=== PATIENT | male | born 1955 | race Caucasian/White ===

== ENCOUNTER → 2017-11-03 | Outpatient (CLI) | payer OTHER ==
[2017-11-03 14:23] LABS: HEMATOCRIT 38.6 % (42.0-52.0); HEMOGLOBIN 13.4 g/dl (13.5-17.5); MEAN CORPUSCULAR HEMOGLOBIN 30.3 pg (27.0-33.0); MEAN CORPUSCULAR HGB CONC 34.7 g/dl (32.0-36.5); MEAN CORPUSCULAR VOLUME 87.3 fl (80.0-96.0); PLATELET COUNT, AUTOMATED 259 10^3/uL (150-450); RED BLOOD COUNT 4.42 10^6/uL (4.30-6.10); RED CELL DISTRIBUTION WIDTH 12.1 % (11.5-14.5); WHITE BLOOD COUNT 6.6 10^3/uL (4.0-10.0)
[2017-11-03 14:42] LABS: INR 0.92; PROTHROMBIN TIME 12.5 SECONDS (12.1-14.4)
[2017-11-03 14:43] LABS: ALBUMIN 4.4 GM/DL (3.2-5.2); ALBUMIN/GLOBULIN RATIO 1.63 (1.00-1.93); ALKALINE PHOSPHATASE 68 U/L (45-117); ALT/SGPT 39 U/L (12-78); ANION GAP 10 MEQ/L (8-16); AST/SGOT 17 U/L (7-37); BILIRUBIN,TOTAL 0.3 MG/DL (0.2-1.0); BLOOD UREA NITROGEN 17 MG/DL (7-18); CARBON DIOXIDE LEVEL 25 MEQ/L (21-32); CHLORIDE LEVEL 105 MEQ/L (98-107); CREATININE FOR GFR 0.97 MG/DL (0.70-1.30); GLOMERULAR FILTRATION RATE > 60.0 (>49); GLUCOSE, FASTING 127 MG/DL (70-100); POTASSIUM SERUM 3.6 MEQ/L (3.5-5.1); SODIUM LEVEL 140 MEQ/L (136-145); TOTAL PROTEIN 7.1 GM/DL (6.4-8.2)
[2017-11-03 15:27] LABS: ERYTHROCYTE SEDIMENTATION RATE 7 mm/hr (0-20)
== END ==
LOC: M LAB 13:22
DX: Z01.818 Encounter for other preprocedural examination (principal); M19.072 Primary osteoarthritis, left ankle and foot; J45.909 Unspecified asthma, uncomplicated; R94.31 Abnormal electrocardiogram [ECG] [EKG]
CPT/HCPCS: 71046

== ENCOUNTER 2017-11-13 09:55 | Inpatient (IN) | payer OTHER ==
[2017-11-13] MEDS: LR 1,000 ML IV ×3 (11:00→22:32)
[2017-11-13] MEDS ORDERED: LIDOCAINE 2% INJ 100 MG/5 ML SDV (FOR ANES.) As Ordered (11:31)
[2017-11-13] MEDS ORDERED: ROCURONIUM BROMIDE 50 MG/5 ML VIAL As Ordered ×2 (11:31→16:31)
[2017-11-13] MEDS ORDERED: MIDAZOLAM INJ 2 MG/2 ML VIAL (J2250) As Ordered ×2 (11:31→11:37)
[2017-11-13] MEDS ORDERED: fentaNYL 250 MCG/5 ML INJECTION (J3010) As Ordered (11:31)
[2017-11-13] MEDS ORDERED: PROPOFOL 200 MG/20 ML VIAL As Ordered (11:31)
[2017-11-13] MEDS ORDERED: fentaNYL 100 MCG/2 ML INJECTION (J3010) As Ordered (11:37)
[2017-11-13] MEDS: fentaNYL 100 MCG/2 ML INJECTION (J3010) IV (12:44)
[2017-11-13] MEDS: MIDAZOLAM INJ 2 MG/2 ML VIAL (J2250) IV (12:44)
[2017-11-13] MEDS ORDERED: dexameTHASONE 10 MG/1 ML VIAL PRES.FREE (J1100) ×2 (14:30→14:49)
[2017-11-13] MEDS ORDERED: EPINEPHrine INJ 1 MG/ML 1ML AMP ×2 (14:30→14:49)
[2017-11-13] MEDS ORDERED: ROPIvacaine 0.5% 30 ML INJECTION (J2795 PER 1MG) ×2 (14:30→14:49)
[2017-11-13] MEDS ORDERED: HYDROmorphone HCL 2 MG/ML 1ML VIAL (J1170) As Ordered (17:42)
[2017-11-13] MEDS ORDERED: ceFAZolin 1GM INJ (J0690 PER 500MG) As Ordered (18:40)
[2017-11-13] MEDS ORDERED: EPINEPHrine INJ 1 MG/ML 1ML AMP As Ordered (19:07)
[2017-11-13] MEDS ORDERED: ONDANSETRON 4MG/2ML VIAL (J2405) As Ordered (19:07)
[2017-11-13] MEDS ORDERED: GLYCOPYRROLATE INJ 0.2 MG/ML 2 ML VIAL As Ordered ×2 (19:09)
[2017-11-13] MEDS ORDERED: ONDANSETRON 4MG/2ML VIAL (J2405) IV (20:00)
[2017-11-13] MEDS ORDERED: fentaNYL 100 MCG/2 ML INJECTION (J3010) IV (20:00)
[2017-11-13] MEDS: NORCO, ANEXSIA 5/325MG TABLET (HYDROcodone/ACETAMINOPHEN) PO (20:06)
[2017-11-13] MEDS ORDERED: FLEET ENEMA PR (20:30)
[2017-11-13] MEDS ORDERED: oxyCODONE 5MG TAB PO (20:30)
[2017-11-13] MEDS: ACETAMINOPHEN 500 MG TAB PO (22:32)
[2017-11-13] MEDS: oxyCODONE 5MG TAB PO (22:33)
[2017-11-14] MEDS: ACETAMINOPHEN 500 MG TAB PO ×3 (06:07→22:16)
[2017-11-14] MEDS: oxyCODONE 5MG TAB PO ×4 (06:08→20:14)
[2017-11-14] MEDS: LR 1,000 ML IV ×2 (06:30→15:42)
[2017-11-14 07:05] LABS: HEMATOCRIT 34.3 % (42.0-52.0); HEMOGLOBIN 11.6 g/dl (13.5-17.5); MEAN CORPUSCULAR HEMOGLOBIN 30.1 pg (27.0-33.0); MEAN CORPUSCULAR HGB CONC 33.8 g/dl (32.0-36.5); MEAN CORPUSCULAR VOLUME 88.9 fl (80.0-96.0); PLATELET COUNT, AUTOMATED 240 10^3/uL (150-450); RED BLOOD COUNT 3.86 10^6/uL (4.30-6.10); RED CELL DISTRIBUTION WIDTH 12.5 % (11.5-14.5)
[2017-11-14 07:15] LABS: INR 1.02; PROTHROMBIN TIME 13.5 SECONDS (12.1-14.4)
[2017-11-14 07:22] LABS: ANION GAP 9 MEQ/L (8-16); BLOOD UREA NITROGEN 10 MG/DL (7-18); CALCIUM LEVEL 8.4 MG/DL (8.8-10.2); CARBON DIOXIDE LEVEL 27 MEQ/L (21-32); CHLORIDE LEVEL 106 MEQ/L (98-107); CREATININE FOR GFR 0.86 MG/DL (0.70-1.30); GLOMERULAR FILTRATION RATE > 60.0 (>49); GLUCOSE, FASTING 128 MG/DL (70-100); SODIUM LEVEL 142 MEQ/L (136-145)
[2017-11-14] MEDS: ASPIRIN 81 MG CHEW TABLET PO ×2 (09:27→20:13)
[2017-11-14] MEDS: PANTOPRAZOLE 40MG TAB (PROTONIX) PO (09:27)
[2017-11-14] MEDS: MULTIVITAMINS/MINERALS THERAP 1 TAB PO (09:27)
[2017-11-14] MEDS: MORPHINE 4 MG/ML 1ML VIAL/SYRINGE (J2270) IV ×2 (19:00→22:17)
[2017-11-14] MEDS: VITAMIN D 1,000 INTERNATIONAL UNITS TABLET PO (20:14)
[2017-11-15] MEDS: oxyCODONE 5MG TAB PO ×3 (02:13→11:13)
[2017-11-15] MEDS: ACETAMINOPHEN 500 MG TAB PO (05:43)
[2017-11-15 06:43] LABS: HEMATOCRIT 35.5 % (42.0-52.0); HEMOGLOBIN 11.8 g/dl (13.5-17.5); MEAN CORPUSCULAR HEMOGLOBIN 29.9 pg (27.0-33.0); MEAN CORPUSCULAR HGB CONC 33.2 g/dl (32.0-36.5); MEAN CORPUSCULAR VOLUME 90.1 fl (80.0-96.0); PLATELET COUNT, AUTOMATED 211 10^3/uL (150-450); RED BLOOD COUNT 3.94 10^6/uL (4.30-6.10); RED CELL DISTRIBUTION WIDTH 12.4 % (11.5-14.5); WHITE BLOOD COUNT 9.4 10^3/uL (4.0-10.0)
[2017-11-15 07:03] LABS: INR 0.98
[2017-11-15 07:06] LABS: ANION GAP 6 MEQ/L (8-16); BLOOD UREA NITROGEN 10 MG/DL (7-18); CALCIUM LEVEL 8.4 MG/DL (8.8-10.2); CARBON DIOXIDE LEVEL 30 MEQ/L (21-32); CHLORIDE LEVEL 103 MEQ/L (98-107); CREATININE FOR GFR 0.84 MG/DL (0.70-1.30); GLOMERULAR FILTRATION RATE > 60.0 (>49); GLUCOSE, FASTING 112 MG/DL (70-100); POTASSIUM SERUM 3.6 MEQ/L (3.5-5.1); SODIUM LEVEL 139 MEQ/L (136-145)
[2017-11-15] MEDS: ASPIRIN 81 MG CHEW TABLET PO (08:02)
[2017-11-15] MEDS: MULTIVITAMINS/MINERALS THERAP 1 TAB PO (08:02)
[2017-11-15] MEDS: PANTOPRAZOLE 40MG TAB (PROTONIX) PO (08:02)
[2017-11-15] MEDS ORDERED: oxyCODONE 5MG TAB PO ×2 (08:15)
== END 2017-11-15 12:00 | disposition home or self-care (01) | DRG 469 ==
LOC: M OR 09:55 → M MS5PR 20:32
PROC: 0SRG0JZ Replacement of Left Ankle Joint with Synthetic Substitute, Open Approach (ICD-10-PCS; principal; 2017-11-13 12:10)
DX: M19.072 Primary osteoarthritis, left ankle and foot (principal); K21.9 Gastro-esophageal reflux disease without esophagitis; E78.00 Pure hypercholesterolemia, unspecified; Z79.899 Other long term (current) drug therapy; Z79.82 Long term (current) use of aspirin

== ENCOUNTER → 2019-09-04 | Outpatient (CLI) | payer OTHER ==
[~2019-09-04] MED LIST: ASPI81TA86 PO; ASPI81TAEC PO; CENTCHW4 PO; COQ-30CA2 PO; COQ-50CA2 PO; GLUC1CAP10 PO; NAPR220C PO; OXYC-517 PO; PANT40TA29 PO; PERC5TAB12 PO; VITA100066 PO; VITA200016 PO; VITMTA PO; VOLT1GEL15 TOP
== END ==
LOC: M EKG 07:28
PROVIDERS: ATTEND Orthopaedic Surgery
DX: Z01.818 Encounter for other preprocedural examination (principal)